=== PATIENT | female | born 1950 | race Caucasian/White ===

== ENCOUNTER 2018-01-02 16:06 | Emergency (ER) | END 2018-01-02 18:42 | disposition home or self-care (01) ==

== ENCOUNTER 2019-04-16 15:07 | Emergency (ER) | payer OTHER ==
[~2019-04-16] VITALS: Ht 154.9 cm; Wt 64.0 kg
[~2019-04-16 15:07] MED LIST: CIPR500T4 PO; IBUP-1561 PO
[2019-04-16 15:08] VITALS: Ht 154.9 cm; Wt 64.0 kg
[2019-04-16] MEDS ORDERED: ACETAMINOPHEN 500 MG TAB PO STA (15:38)
--- NOTE | 2019-04-16 16:51 | ERD ---
ER Documentation Chief Complaint Chief Complaint Pt reports AP x 4 days with fever, pt took meds @ 12 HPI 68-year-old female presents the emergency department with her family for evaluation of lower abdominal pain. Patient states that over the last 4 days she had a suprapubic abdominal pain associated with a low-grade fever. She states that she feels "bad in her urine." She reports urinary frequency but no hematuria. She reports no vomiting. She reports no diarrhea. She reports no bradycardic symptoms. Currently her discomfort she reports is mild to moderate. ROS All systems reviewed and are negative except as per history of present illness. Medications Home Meds Active Scripts Ciprofloxacin Hcl* (Ciprofloxacin Hcl*) 500 Mg Tablet, 500 MG PO BID for 7 Days, TAB Prov:MEME GREENWOOD 04/16/19 Ibuprofen* (Motrin*) 400 Mg Tab, 400 MG PO Q8, #12 TAB Prov:NIMA REDD MD 01/02/18 Allergies Allergies: Coded Allergies: No Known Allergy (Unverified , 01/02/18) PMhx/Soc Hx Alcohol Use: No Hx Substance Use: No Hx Tobacco Use: No FmHx Supportive family at bedside Physical Exam Vitals Vital Signs Date Temp Pulse Resp B/P (MAP) Pulse Ox O2 O2 Flow FiO2 Time Delivery Rate 04/16/19 97.8 16:35 04/16/19 98.5 68 24 140/61 100 15:08 (87) Physical Exam GENERAL: Elderly, but well-appearing 68-year-old in no distress HEENT: Pupils equal, round, and reactive to light. EOMI. There is no scleral icterus. NECK: C-spine is soft and supple, there is no meningismus. There is no cervical lymphadenopathy. LUNGS: Clear to auscultation bilaterally. There are no rales, wheezes or rhonchi. HEART: Regular rate and rhythm, no murmurs, clicks, rubs or gallops. ABDOMEN: Soft, nondistended. Mild suprapubic tenderness. No CVA tenderness. No rebound or guarding. EXTREMITIES: There is no peripheral cyanosis or edema. No focal swelling or erythema. NEURO: The patient moves all four extremities with 5/5 strength. Cranial nerves II - XII are intact. Normal gait. Alert and oriented SKIN: There is no apparent rash or petechiae. HEME/LYMPHATIC: There is no evidence of excessive bruising or lymphedema. PSYCHIATRIC: The patient does not appear anxious or depressed. Result Diagram: 04/16/19 1604 04/16/19 1604 Results 24 hrs Laboratory Tests Test 04/16/19 16:04 04/16/19 16:05 White Blood Count 9.5 10^3/ul Red Blood Count 4.49 10^6/ul Hemoglobin 14.1 g/dl Hematocrit 40.7 % Mean Corpuscular Volume 90.6 fl Mean Corpuscular Hemoglobin 31.4 pg Mean Corpuscular Hemoglobin Concent 34.6 g/dl Red Cell Distribution Width 13.5 % Platelet Count 303 10^3/UL Mean Platelet Volume 9.6 fl Immature Granulocytes % 0.500 % Neutrophils % 63.5 % Lymphocytes % 25.2 % Monocytes % 8.2 % Eosinophils % 1.6 % Basophils % 1.0 % Nucleated Red Blood Cells % 0.0 /100WBC Immature Granulocytes # 0.050 10^3/ul Neutrophils # 6.0 10^3/ul Lymphocytes # 2.4 10^3/ul Monocytes # 0.8 10^3/ul Eosinophils # 0.2 10^3/ul Basophils # 0.1 10^3/ul Nucleated Red Blood Cells # 0.0 10^3/ul Sodium Level 136 mmol/L Potassium Level 4.6 mmol/L Chloride Level 102 mmol/L Carbon Dioxide Level 29 mmol/L Anion Gap 5 Blood Urea Nitrogen 14 mg/dl Creatinine 0.76 mg/dl Est Glomerular Filtrat Rate mL/min > 60 mL/min Glucose Level 95 mg/dl Calcium Level 9.2 mg/dl Total Bilirubin 0.3 mg/dl Direct Bilirubin 0.20 mg/dl Indirect Bilirubin 0.1 mg/dl Aspartate Amino Transf (AST/SGOT) 20 IU/L Alanine Aminotransferase (ALT/SGPT) 17 IU/L Alkaline Phosphatase 100 IU/L Total Protein 7.0 g/dl Albumin 3.9 g/dl Globulin 3.10 g/dl Albumin/Globulin Ratio 1.25 Lipase 62 U/L Urine Color MARY Urine Clarity CLEAR Urine pH 5.0 Urine Specific Adel 1.005 Urine Ketones NEGATIVE mg/dL Urine Nitrite POSITIVE mg/dL Urine Bilirubin NEGATIVE mg/dL Urine Urobilinogen 1+ mg/dL Urine Leukocyte Esterase NEGATIVE Carmita/ul Urine Microscopic RBC 0 /HPF Urine Microscopic WBC 0 /HPF Urine Bacteria FEW /HPF Urine Hemoglobin NEGATIVE mg/dL Urine Glucose NEGATIVE mg/dL Urine Total Protein NEGATIVE mg/dl POC Venous Lactate 1.0 mmol/L Current Medications Medications Dose Sig/Dori Start Time Status Last (Trade) Ordered Route PRN Stop Time Admin Dose Reason Admin 1,000 mg ONCE STAT 04/16/19 DC 04/16/19 Acetaminophen PO 15:38 16:35 (Tylenol 04/16/19 15:40 Tab) Procedures/MDM Patient was taken to a room, seen and evaluated. Comfort measures were initiated. Diagnostic tests were ordered and reviewed. 3 LEAD RHYTHM STRIP: Normal sinus rhythm without ectopy RADIOLOGY: Reviewed with the radiologist REEVALUATION: 1644: Diagnostic tests were appreciated and discussed with the patient and her family. Serial examinations of the abdomen remained benign and she looked well. MEDICAL DECISION MAKIN-year-old female presents the emerge from with abdominal pain of uncertain etiology. Differential diagnosis entertained focus ed on urinary, gynecologic and other GI possible concerns. At this time, the patient has a questional urinary tract infection. Her urinalysis is nitrite positive, which would be very specific for a urinary tract infection, despite the fact that she has no white cells. Given her history and physical examination, I still think cystitis is the most likely cause of her discomfort and I will be treating her with outpatient antibiotic. She is not septic and has normal white count and a CT scan that does not show appendicitis or other intra-abdominal concerns. At this time, she appears to be clinically stable and nontoxic and appropriate for outpatient care. Precautionary instructions have been provided to the patient and her family. Departure Diagnosis: Primary Impression: UTI (urinary tract infection) Additional Impression: Abdominal pain Condition: Stable Patient Instructions: Abdominal Pain, Understanding Urinary Tract Infections (UTIs) Additional Instructions: Consulte a moreno mdico para el seguimiento segn lo discutido. Lleve jonnie copia de los resultados de moreno prueba, si corresponde, a esta visita de seguimiento. Consulte a moreno mdico o regrese aqu si kassy sntomas no mejoran cornell se esperaba. En cualquier momento, regrese al departamento de emergencias por cualquier cambio o empeoramiento en kassy sntomas. MEME GREENWOOD Apr 16, 2019 16:51
[2019-04-16 17:10] VITALS: BP 128/72; PULSE 64; RESP 20
== END 2019-04-16 17:15 | disposition home or self-care (01) ==
LOC: E/R 15:07
DX: N39.0 Urinary tract infection, site not specified (principal)
CPT/HCPCS: 36415; 74176; 80053; 81001; 83605; 83690; 85025; 87040; 87086; Z7502; Z7610; 93005